=== PATIENT | male | born 1955 ===

== ENCOUNTER 2018-01-28 20:03 | Emergency (ER) | payer OTHER ==
[~2018-01-28] VITALS: Ht 177.8 cm; Wt 72.6 kg
[~2018-01-28 20:03] MED LIST: CATAFLAM50 MG PO
[2018-01-28] MEDS ORDERED: PANADOL EXTRA500 MG (20:26)
== END 2018-01-28 22:51 | disposition home or self-care (01) ==
LOC: ER 20:03
DX: R53.1 Weakness (principal); R50.9 Fever, unspecified

== ENCOUNTER 2020-01-17 07:18 | Outpatient (CLI) | payer OTHER ==
[~2020-01-17 07:18] MED LIST changes: +PANADOL EXTRA500 MG
== END 2020-01-17 08:36 | disposition home or self-care (01) ==
LOC: LAB 07:18
PROVIDERS: ATTEND General Practice
DX: R51 Headache (principal); J11.1 Influenza due to unidentified influenza virus with other respiratory manifestations; Z20.828 Contact with and (suspected) exposure to other viral communicable diseases; R50.9 Fever, unspecified; Z11.59 Encounter for screening for other viral diseases

== ENCOUNTER 2020-01-18 07:01 | Outpatient (CLI) | payer OTHER | END 2020-01-18 07:29 | disposition home or self-care (01) | LOC: LAB 07:01 | PROVIDERS: ATTEND General Practice | DX: D69.49 Other primary thrombocytopenia (principal) ==

== ENCOUNTER 2020-01-21 06:59 | Outpatient (CLI) | payer OTHER | END 2020-01-21 15:00 | disposition home or self-care (01) | LOC: LAB 06:59 | PROVIDERS: ATTEND General Practice | DX: D69.6 Thrombocytopenia, unspecified (principal) ==